=== PATIENT | female | born 1980 | race Asian ===

== ENCOUNTER 2023-01-10 08:43 | Day surgery (SDC) | payer OTHER ==
[~2023-01-10] VITALS: Ht 160 cm; Wt 63.5 kg
[2023-01-10] MEDS ORDERED: fentaNYL citrate 0.05 MG/ML VIAL ONE (10:00)
[2023-01-10] MEDS ORDERED: diphenhydrAMINE 50 MG/ML VIAL ONE (10:00)
[2023-01-10] MEDS ORDERED: MIDAZOLAM 5 MG/5 ML VIAL ONE (10:00)
[2023-01-10] MEDS ORDERED: MIDAZOLAM 2 MG/2 ML VIAL IVP ONE (14:40)
[2023-01-10] MEDS ORDERED: diphenhydrAMINE 50 MG/ML VIAL IVP ONE (14:40)
[2023-01-10] MEDS ORDERED: fentaNYL citrate 0.05 MG/ML VIAL IVP ONE (14:40)
== END 2023-01-10 10:50 | disposition home or self-care (01) ==
LOC: MDS 08:43 → MMU 08:43 → MDS 10:50
PROVIDERS: ATTEND Internal Medicine Gastroenterology
DX: R10.13 Epigastric pain (principal); K21.9 Gastro-esophageal reflux disease without esophagitis; K29.50 Unspecified chronic gastritis without bleeding; Z79.1 Long term (current) use of non-steroidal anti-inflammatories (NSAID); Z79.899 Other long term (current) drug therapy; Z20.822 Contact with and (suspected) exposure to COVID-19
CPT/HCPCS: 43239; 87426; J1200; J2250; J3010